=== PATIENT | male | born 1960 | race African-American/Black ===

== ENCOUNTER 2017-04-18 08:23 | Emergency (ER) | payer OTHER | END 2017-04-18 10:19 | disposition home or self-care (01) | DX: S61.214A Laceration without foreign body of right ring finger without damage to nail, initial encounter (principal); W26.8XXA Contact with other sharp object(s), not elsewhere classified, initial encounter; Y92.018 Other place in single-family (private) house as the place of occurrence of the external cause; Z87.891 Personal history of nicotine dependence ==